=== PATIENT | male | born 1940 | race Caucasian/White ===

== ENCOUNTER 2019-05-12 08:53 | Inpatient (IN) | payer MEDICARE ==
[2019-05-12] VITALS (7 sets, daily range): BP systolic 106–144; BP diastolic 51–83
[~2019-05-12] VITALS: Ht 177.8 cm; Wt 96.6 kg
[~2019-05-12 08:53] MED LIST: HEPARIN SODIUM 1,000 UNIT/1ML VIAL IV ONE; NICARDIPINE 100MCG/ML 10ML VIAL (CATH LAB) IV ONE; NITROGLYCERIN 50MCG/ML 10ML VIAL (CATH LAB) IV ONE
[2019-05-12] MEDS ORDERED: LIDOCAINE HCL 1% 20ML VIAL (Pyxis) INJ ONE (09:43)
[2019-05-12] MEDS ORDERED: IODIXANOL 320MG/ML 100 ML BOTTLE IV ONE ×2 (09:43→11:03)
[2019-05-12] MEDS: SODIUM CHLORIDE 0.45% 1,000 ML IV SCH ×2 (10:00→20:40)
[2019-05-12] MEDS ORDERED: MIDAZOLAM HCL 2 MG/2 ML VIAL ONE (10:26)
[2019-05-12] MEDS ORDERED: FENTANYL CITRATE/PF 50MCG/ML 2ML VIAL ONE (10:26)
[2019-05-12] MEDS ORDERED: COR6 PO (10:31)
[2019-05-12] MEDS ORDERED: [UNRECOGNIZED DRUG - OTHER] PO (10:31)
[2019-05-12] MEDS ORDERED: FLUO20CA33 PO (10:31)
[2019-05-12] MEDS ORDERED: ATOR20TA PO (10:31)
[2019-05-12] MEDS ORDERED: CAND16TA PO (10:31)
[2019-05-12] MEDS ORDERED: CLOP75TA4 PO (10:31)
[2019-05-12] MEDS ORDERED: IOHEXOL-300 100 ML BOTTLE ONE (10:57)
[2019-05-12] MEDS ORDERED: ASPIRIN 325MG EC TABLET PO ONE (11:34)
[2019-05-12] MEDS ORDERED: CLOPIDOGREL 75MG TABLET ONE (11:34)
[2019-05-12] MEDS ORDERED: ONDANSETRON HCL 4MG/2ML INJ IV PRN (11:45)
[2019-05-12] MEDS ORDERED: ATROPINE SULFATE 1MG/10ML SYR IV PRN (11:45)
[2019-05-12] MEDS ORDERED: ACETAMINOPHEN 325MG TABLET PO PRN (11:45)
[2019-05-12] MEDS ORDERED: PNEUMOCOCCAL 23-VAL P-SAC VAC 0.5 ML IM ONE (16:00)
[2019-05-13] VITALS (7 sets, daily range): BP systolic 120–138; BP diastolic 61–96
[2019-05-13] MEDS: SODIUM CHLORIDE 0.45% 1,000 ML IV SCH (05:09)
[2019-05-13 06:17] LABS: CHLORIDE 107 mEq/L (98-107)
[2019-05-13 06:31] LABS: BASOPHILS % 0.3 % (0.0-2.0); EOSINOPHILS % 1.7 % (0.0-5.0); HEMATOCRIT. 38.9 % (42.0-52.0); HEMOGLOBIN. 13.8 g/dL (14.0-18.0); MEAN CORPUSCULAR HEMOGLOBIN 33.1 pg (28.0-32.0); MEAN CORPUSCULAR VOLUME 93.2 fL (80.0-94.0); MEAN PLATELET VOLUME 7.2 fl (7.4-10.4); MONOCYTES % 11.5 % (2.0-8.0); NEUTROPHILS % 68.5 % (40.0-76.0); PLATELET 183 x1000/uL (130-400); RED BLOOD CELL COUNT 4.17 mill/uL (4.7-6.1); RED CELL DISTRIBUTION WIDTH 12.9 % (11.6-14.6)
[2019-05-13] MEDS ORDERED: ASPIRIN 325MG TABLET PO SCH (09:00)
[2019-05-13] MEDS ORDERED: CLOPIDOGREL 75MG TABLET PO SCH (09:00)
== END 2019-05-13 12:10 | disposition home or self-care (01) | DRG 247 ==
LOC: CCL 08:53 → 3WST 08:54
PROVIDERS: ADMIT Specialist; ATTEND Specialist
PROC: 027034Z Dilation of Coronary Artery, One Artery with Drug-eluting Intraluminal Device, Percutaneous Approach (ICD-10-PCS; principal; 2019-05-12)
PROC: 4A023N7 Measurement of Cardiac Sampling and Pressure, Left Heart, Percutaneous Approach (ICD-10-PCS; 2019-05-12)
PROC: B2111ZZ Fluoroscopy of Multiple Coronary Arteries using Low Osmolar Contrast (ICD-10-PCS; 2019-05-12)
PROC: B2151ZZ Fluoroscopy of Left Heart using Low Osmolar Contrast (ICD-10-PCS; 2019-05-12)
DX: I25.110 Atherosclerotic heart disease of native coronary artery with unstable angina pectoris (principal); E78.5 Hyperlipidemia, unspecified; I11.9 Hypertensive heart disease without heart failure; Z90.49 Acquired absence of other specified parts of digestive tract; Z88.8 Allergy status to other drugs, medicaments and biological substances
CPT/HCPCS: 36415; 80048; 82962; 85347; 92928; 93005; 93458; 93571; C1769; C1874; C1887; C1893; J1644; J2250; J3010; J3490; Q9967